=== PATIENT | female | born 1990 | race Caucasian/White ===

== ENCOUNTER → 2016-08-03 | Outpatient (CLI) | payer OTHER ==
--- NOTE | 2016-08-04 09:33 | US ---
EXAMINATION: Transabdominal obstetric ultrasound HISTORY: Light for gestational age COMPARISON: 05/02/2016 TECHNIQUE: Grayscale, color Doppler, and spectral Doppler images obtained transabdominally. FINDINGS: The placenta is posterior. Amniotic fluid index is normal. The biparietal diameter measure s 8.5 cm, head circumference measures 29.8 cm, the abdominal circumference measures 28.9 cm, and the femoral length measures 6.7 cm. This gives an estimated gestational age at 33 weeks and 4 days with an estimated date of delivery at 09/17/2016. Overall the fetus is within the 20th percentile. The es timated weight is 2187 g. The heart rate is 157 bpm. The fetus is in a cephalic position . IMPRESSION: Single live intrauterine .
== END ==
LOC: MW.US 14:42
PROVIDERS: ATTEND Advanced Practice Midwife
DX: O36.5930 Maternal care for other known or suspected poor fetal growth, third trimester, not applicable or unspecified (principal); Z3A.33 33 weeks gestation of pregnancy
CPT/HCPCS: 76815-26; 76816

== ENCOUNTER → 2016-08-12 | Outpatient (CLI) | payer OTHER, BC | LOC: MW.CHOBGYN 15:00 | PROVIDERS: ATTEND Advanced Practice Midwife | DX: Z34.90 Encounter for supervision of normal pregnancy, unspecified, unspecified trimester (principal) | CPT/HCPCS: 87081 ==

== ENCOUNTER 2016-09-09 22:40 | Inpatient (IN) | payer BC, OTHER ==
[2016-09-09] MEDS: Lactated Ringers 1,000 ML IV SCH (23:30)
[2016-09-09] MEDS ORDERED: Misoprostol 200 MCG Tab PO PRN (23:42)
[2016-09-09] MEDS ORDERED: Sodium Chloride 0.9% 2.5 ML Syringe FLUSH PRN (23:42)
[2016-09-09] MEDS ORDERED: Nalbuphine 10 MG/1 ML Vial IVPUSH PRN (23:42)
[2016-09-09] MEDS ORDERED: Misoprostol 25 MCG (1/4 of 100 MCG) Tab VAG PRN (23:42)
[2016-09-09] MEDS ORDERED: Sodium Chloride 0.9% 10 ML Syringe FLUSH PRN (23:42)
[2016-09-09] MEDS ORDERED: Butorphanol 1 MG/ML SDV IVPUSH PRN (23:42)
[2016-09-09] MEDS ORDERED: Lidocaine 1% 50 ML MDV INJECT PRN (23:42)
[2016-09-09] MEDS ORDERED: Methylergonovine 0.2 MG/1 ML Amp IM PRN (23:42)
[2016-09-09] MEDS ORDERED: Water For Irrigation,Sterile 1,000 ML Container IRR PRN (23:42)
[2016-09-09] MEDS ORDERED: Carboprost Tromethamine 250 MCG/1 ML Amp IM PRN (23:42)
[2016-09-09] MEDS ORDERED: Terbutaline 1 MG/ML SDV SUBCUT PRN (23:42)
[2016-09-09] MEDS ORDERED: Oxytocin/Lactated Ringers 30 UNIT/500 ML BAG IV SCH ×2 (23:45)
[2016-09-09] MEDS ORDERED: Misoprostol 25 MCG (1/4 of 100 MCG) Tab VAG SCH (23:45)
[2016-09-10] MEDS: Lactated Ringers 1,000 ML IV SCH (02:06)
[2016-09-10] MEDS ORDERED: Ropivacaine 0.2% 2 MG/ML 20 ML SDV ONE (02:37)
[2016-09-10] MEDS ORDERED: fentaNYL 100 MCG/2 ML SDV ONE (02:37)
--- NOTE | 2016-09-10 02:50 | PCM.PREANE ---
Preanesthetic Assessment - Anesthesia/Transfusion/Family Hx Anesthesia History: No Prior Anesthesia Family History of Anesthesia Reaction: No - Review of Systems General: No Symptoms Pulmonary: No Symptoms Cardiovascular: No Symptoms Gastrointestinal: No symptoms Neurological: No Symptoms Other: Reports: None - Physical Assessment Height: 1.5 m Weight: 133 kg ASA Class: 2 Mental Status: Alert & Oriented x3 Airway Class: Mallampati = 2 Dentition: Reports: Normal Dentition - Lab Values: Laboratory Last Values WBC 11.65 K/uL (4.0-11.0) H 09/09/16 23:57 RBC 4.16 M/uL (4.30-5.90) L 09/09/16 23:57 Hgb 12.5 g/dL (12.0-16.0) 09/09/16 23:57 Hct 37.2 % (36.0-46.0) 09/09/16 23:57 MCV 89.4 fL (80.0-98.0) 09/09/16 23:57 MCH 30.0 pg (27.0-32.0) 09/09/16 23:57 MCHC 33.6 g/dL (31.0-37.0) 09/09/16 23:57 RDW Std Deviation 48.9 fl (28.0-62.0) 09/09/16 23:57 RDW Coeff of Bo 15 % (11.0-15.0) 09/09/16 23:57 Plt Count 210 K/uL (150-400) 09/09/16 23:57 MPV 11.00 fL (7.40-12.00) 09/09/16 23:57 Nucleated RBC % 0.0 /100WBC 09/09/16 23:57 Nucleated RBCs # 0 K/uL 09/09/16 23:57 Membrane Rupture POSITIVE 09/09/16 23:10 Blood Type A POSITIVE 09/09/16 23:57 Antibody Screen NEGATIVE 09/09/16 23:57 - Allergies Allergies/Adverse Reactions: Allergies Allergy/AdvReac Type Severity Reaction Status Date / Time No Known Allergies Allergy Verified 09/09/16 23:07 - Anesthesia Plan Pre-Op Medication Ordered: None - Acknowledgements Anesthesia Type Planned: Epidural Pt an Appropriate Candidate for the Planned Anesthesia: Yes Alternatives and Risks of Anesthesia Discussed w Pt/Guardian: Yes Pt/Guardian Understands and Agrees with Anesthesia Plan: Yes PreAnesthesia Questionnaire Hematologic History: Reports: None (Denies any personal or family hx of bleeding or clotting problems.) - Past Surgical History Head Surgeries/Procedures: Reports: None HEENT Surgical History: Reports: None Cardiovascular Surgical History: Reports: None Respiratory Surgical History: Reports: None GI Surgical History: Reports: None Female Surgical History: Reports: None Male Surgical History: Reports: None Endocrine Surgical History: Reports: None Neurological Surgical History: Reports: None Musculoskeletal Surgical History: Reports: None Oncologic Surgical History: Reports: None Dermatological Surgical History: Reports: None - CURRENT (IN HOUSE) MEDS Current Meds: Current Medications Butorphanol Tartrate (Stadol) 1 mg IVPUSH Q1H PRN PRN Reason: Pain Carboprost Tromethamine (Hemabate Ds) 250 mcg IM ASDIRECTED PRN PRN Reason: Post Hemorrhage Lactated Ringer's (Ringers, Lactated) 1,000 mls @ 150 mls/hr IV ASDIRECTED QUANG Last Admin: 09/10/16 02:06 Dose: 999 mls/hr Oxytocin/Lactated Ringer's (Pitocin In Lr 30 Units/500 Ml) 30 unit in 500 mls @ 2 mls/hr IV TITRATE QUANG; 2 MUNITS/MIN PRN Reason: Protocol Lidocaine HCl (Xylocaine 1%) 50 ml INJECT .ONCE PRN PRN Reason: Laceration repair Methylergonovine Maleate (Methergine) 0.2 mg IM ASDIRECTED PRN PRN Reason: Post Hemorrhage Misoprostol (Cytotec) 200 mcg PO .ONCE PRN PRN Reason: Post Hemorrhage Sodium Chloride (Saline Flush) 10 ml FLUSH ASDIRECTED PRN PRN Reason: Keep Vein Open Sodium Chloride (Saline Flush) 2.5 ml FLUSH ASDIRECTED PRN PRN Reason: Keep Vein Open Sterile Water (Sterile Water For Irrigation) 1,000 ml IRR ASDIRECTED PRN PRN Reason: delivery Terbutaline Sulfate (Brethine) 0.25 mg SUBCUT ASDIRECTED PRN PRN Reason: Tacysystole Discontinued Medications Fentanyl (Sublimaze) Confirm Administered Dose 100 mcg .ROUTE .STK-MED ONE Stop: 09/10/16 02:38 Oxytocin/Lactated Ringer's (Pitocin In Lr 30 Units/500 Ml) 30 unit in 500 mls @ 999 mls/hr IV ASDIRECTED QUANG PRN Reason: 999 MUNITS/MIN Stop: 09/10/16 00:16 Ropivacaine/Fentanyl/NS (Fentanyl 2 Mcg-Ropiv 0.2%-Ns) Confirm Administered Dose 100 mls @ as directed .ROUTE .STK-MED ONE Stop: 09/10/16 02:38 Misoprostol (Cytotec) 25 mcg VAG .ONCE QUANG Misoprostol (Cytotec) 25 mcg VAG Q4H PRN PRN Reason: Cervical Ripening Stop: 09/11/16 03:43 Nalbuphine HCl (Nubain) 10 mg IVPUSH Q1H PRN PRN Reason: Pain (severe 7-10) Stop: 09/10/16 01:43 Ropivacaine (Naropin 0.2%) Confirm Administered Dose 20 ml .ROUTE .STK-MED ONE Stop: 09/10/16 02:38
[2016-09-10] MEDS ORDERED: Acetaminophen 500 MG Tab PO PRN (09:19)
[2016-09-10] MEDS ORDERED: Bisacodyl 10 MG Supp RECTAL PRN (09:19)
[2016-09-10] MEDS ORDERED: Lanolin 100% Cream 7 GM Tube TOP PRN (09:19)
[2016-09-10] MEDS ORDERED: oxyCODONE 5 MG Tab PO PRN (09:19)
[2016-09-10] MEDS ORDERED: Docusate Sodium 100 MG Cap PO PRN (09:19)
[2016-09-10] MEDS ORDERED: Benzocaine/Menthol 20%-0.5% Spray 78 GM Cannister TOP PRN (09:19)
[2016-09-10] MEDS ORDERED: Witch Hazel Medicated Pads 40/Jar TOP PRN (09:19)
[2016-09-10] MEDS: Ibuprofen 800 MG Tab PO PRN ×2 (09:52→16:20)
--- NOTE | 2016-09-10 10:41 | PCM48HPAN ---
Post Anesthesia Note - EVALUATION WITHIN 48HRS OF ANESTHETIC Vital Signs in Normal Range: Yes Patient Participated in Evaluation: Yes Respiratory Function Stable: Yes Airway Patent: Yes Cardiovascular Function Stable: Yes Hydration Status Stable: Yes Pain Control Satisfactory: Yes Nausea and Vomiting Control Satisfactory: Yes Mental Status Recovered: Yes - COMMENTS/OBSERVATIONS Free Text/Narrative:: Denies any complaints or concerns at this time.
--- NOTE | 2016-09-11 08:43 | PCM.PNPP ---
- General Info Date of Service: 09/11/16 Functional Status: Reports: pain controlled, tolerating diet, ambulating, urinating - Review of Systems General: Reports: No Symptoms HEENT: Reports: no symptoms Pulmonary: Reports: no symptoms Cardiovascular: Reports: No Symptoms Gastrointestinal: Reports: No symptoms, Fl[place] Genitourinary: Reports: no symptoms Musculoskeletal: Reports: no symptoms Skin: Reports: no symptoms Neurological: Reports: No Symptoms Psychiatric: Reports: no symptoms - General Info Date of Service: 09/11/16 - Patient Data Vital Signs - most recent: Last Vital Signs Temp 36.8 C 09/11/16 04:00 Pulse 77 09/11/16 04:00 Resp 12 09/11/16 04:00 BP 117/76 09/11/16 04:00 Pulse Ox 98 09/11/16 04:00 Weight - most recent: 133 kg Lab Results - last 24 hrs: Laboratory Results - last 24 hr 09/11/16 Range/Units 05:58 Hgb 10.7 L (12.0-16.0) g/dL Hct 32.1 L (36.0-46.0) % Med Orders - Current: Current Medications Acetaminophen (Tylenol Extra Strength) 500 mg PO Q4H PRN PRN Reason: Pain Benzocaine/Menthol (Dermoplast Pain Relief 20%-0.5% [place]) 78 gm TOP ASDIRECTED PRN PRN Reason: Perineal Comfort Measure Last Admin: 09/10/16 09:53 Dose: 78 gm Bisacodyl (Dulcolax) 10 mg RECTAL .ONCE PRN PRN Reason: Constipation Butorphanol Tartrate (Stadol) 1 mg IVPUSH Q1H PRN PRN Reason: Pain Carboprost Tromethamine (Hemabate Ds) 250 mcg IM ASDIRECTED PRN PRN Reason: Post Hemorrhage Docusate Sodium (Colace) 100 mg PO BID PRN PRN Reason: Constipation Emollient Ointment (Lansinoh Hpa) 0 gm TOP ASDIRECTED PRN PRN Reason: Sore Nipples Lactated Ringer's (Ringers, Lactated) 1,000 mls @ 150 mls/hr IV ASDIRECTED QUANG Last Admin: 09/10/16 02:06 Dose: 999 mls/hr Oxytocin/Lactated Ringer's (Pitocin In Lr 30 Units/500 Ml) 30 unit in 500 mls @ 2 mls/hr IV TITRATE QUANG; 2 MUNITS/MIN PRN Reason: Protocol Ibuprofen (Motrin) 800 mg PO Q6H PRN PRN Reason: Pain Last Admin: 09/10/16 16:20 Dose: 800 mg Lidocaine HCl (Xylocaine 1%) 50 ml INJECT .ONCE PRN PRN Reason: Laceration repair Methylergonovine Maleate (Methergine) 0.2 mg IM ASDIRECTED PRN PRN Reason: Post Hemorrhage Misoprostol (Cytotec) 200 mcg PO .ONCE PRN PRN Reason: Post Hemorrhage Oxycodone HCl (Oxycodone) 5 mg PO Q2H PRN PRN Reason: Pain Sodium Chloride (Saline Flush) 10 ml FLUSH ASDIRECTED PRN PRN Reason: Keep Vein Open Sodium Chloride (Saline Flush) 2.5 ml FLUSH ASDIRECTED PRN PRN Reason: Keep Vein Open Sterile Water (Sterile Water For Irrigation) 1,000 ml IRR ASDIRECTED PRN PRN Reason: delivery Last Admin: 09/10/16 07:00 Dose: 1,000 ml Terbutaline Sulfate (Brethine) 0.25 mg SUBCUT ASDIRECTED PRN PRN Reason: Tacysystole [place] (Tucks) 1 pad TOP ASDIRECTED PRN PRN Reason: comfort care Last Admin: 09/10/16 09:52 Dose: 1 pad Discontinued Medications Fentanyl (Sublimaze) Confirm Administered Dose 100 mcg .ROUTE .STK-MED ONE Stop: 09/10/16 02:38 Oxytocin/Lactated Ringer's (Pitocin In Lr 30 Units/500 Ml) 30 unit in 500 mls @ 999 mls/hr IV ASDIRECTED QUANG PRN Reason: 999 MUNITS/MIN Stop: 09/10/16 00:16 Last Admin: 09/10/16 06:58 Dose: 999 munits/min, 999 mls/hr Ropivacaine/Fentanyl/NS (Fentanyl 2 Mcg-Ropiv 0.2%-Ns) Confirm Administered Dose 100 mls @ as directed .ROUTE .STK-MED ONE Stop: 09/10/16 02:38 Misoprostol (Cytotec) 25 mcg VAG .ONCE QUANG Misoprostol (Cytotec) 25 mcg VAG Q4H PRN PRN Reason: Cervical Ripening Stop: 09/11/16 03:43 Nalbuphine HCl (Nubain) 10 mg IVPUSH Q1H PRN PRN Reason: Pain (severe 7-10) Stop: 09/10/16 01:43 Ropivacaine (Naropin 0.2%) Confirm Administered Dose 20 ml .ROUTE .STK-MED ONE Stop: 09/10/16 02:38 - Interaction Infant Disposition, : [place] in Room with Family Interaction: Holding Infant Infant Feeding: Attempted ; Nursed Fair/Poor Support Person: Significant Other - Recovery Exam Fundal Tone: Firm Fundal Level: At Umbilicus Fundal Placement: Midline Lochia Amount: Scant Lochia Color: Rubra/Red Perineum Description: Intact, Minimal Bruising/Swelling Other Perinuem Description: 1st degree laceration Episiotomy/Laceration: Approximated Bladder Status: Voiding Urinary Elimination: Voided - Exam General: alert, oriented Neck: supple Lungs: Clear to auscultation, Normal respiratory effort Cardiovascular: Regular Rate, Regular Rhythm Abdomen: bowel sounds present, soft Extremities: no calf tenderness Skin: warm, dry, intact Neurological: no new focal deficit Psy/Mental Status: alert, normal affect, normal mood - Problem List & Annotations (1) Vaginal delivery SNOMED Code(s): 247737441 Code(s): O80 - ENCOUNTER FOR FULL-TERM UNCOMPLICATED DELIVERY Status: Acute Current Visit: Yes - Problem List Review Problem List Initiated/Reviewed/Updated: Yes - My Orders Last 24 Hours: My Active Orders 09/10/16 09:19 Patient Status [ADT] Routine Up ad Nikki [RC] ASDIRECTED Acetaminophen [Tylenol Extra Strength] 500 mg PO Q4H PRN Benzocaine/Menthol [Dermoplast Pain Relief 20%-0.5% [place]] 78 gm TOP ASDIRECTED PRN Bisacodyl [Dulcolax] 10 mg RECTAL .ONCE PRN Docusate Sodium [Colace] 100 mg PO BID PRN Ibuprofen [Motrin] 800 mg PO Q6H PRN Lanolin [Lansinoh HPA] See Dose Instructions TOP ASDIRECTED PRN [place] [Tucks] 1 pad TOP ASDIRECTED PRN oxyCODONE 5 mg PO Q2H PRN Assess Lochia [WOMSER] Per Unit Routine Assess Uterine Involution [WOMSER] Per Unit Routine Peripheral IV Discontinue [OM.PC] Routine 09/10/16 09:20 Ice Therapy [OM.PC] Per Unit Routine Perineal Care [OM.PC] Per Unit Routine Sitz Bath [OM.PC] Per Unit Routine 09/11/16 10:00 Ready for Discharge [RC] PER UNIT ROUTINE - Assessment Assessment:: PPD#1 S/p SAVD Doing well Desires discharge home today - Plan Plan:: Discharge home today Pelvic rest for 6wks Call for increased heavy bleeding of > 1pad per hr Call for temp. >100.4 x 2 Thromboembolic precautions given blues/depression precautions given
[2016-09-11 09:18] VITALS: BP 117/68
--- NOTE | 2016-09-12 06:08 | OR ---
SURGEON: Eleni Sagastume DATE OF PROCEDURE: 09/10/2016 PREDELIVERY HISTORY: This is a 26-year-old, G2, P1, presented to Labor and Delivery at 39 weeks 5 days with complaints of leakage of fluid. The patient was noted to be grossly ruptured. The patient was having irregular painful contractions at the at presentation. heart tracing was noted to be significant for category 1 tracing on admission. Amniotic fluid was noted to be clear. The patient eventually did receive her epidural after contractions were closer together. The patient eventually went on to complete dilation and +3 station under maternal expulsive efforts. PREOPERATIVE DIAGNOSES: 1. Intrauterine at 39 weeks and 5 days. 2. GBS negative. 3. Spontaneous rupture of membranes. 4. Active labor. POSTOPERATIVE DIAGNOSES: 1. Intrauterine at 39 weeks and 5 days. 2. Delivered status. 3. First-degree vaginal laceration. PROCEDURE PERFORMED: 1. Spontaneous assisted vaginal delivery. 2. Repair of first-degree vaginal laceration. ANESTHESIA TYPE: Epidural. ESTIMATED BLOOD LOSS: 150 mL. FINDINGS: Viable female infant in vertex presentation with score of 7 and 9 at 1 and 5 minutes respectively and weight of 6 pounds, 8 ounces. Normal intact placenta with 3-vessel cord. First-degree vaginal laceration. SPECIMEN REMOVED: Placenta. CONDITION: Postoperatively, the patient and tolerated the procedure well. COMPLICATIONS: None known. DESCRIPTION OF PROCEDURE: This female under epidural anesthesia delivered a viable female infant, with score of 7 and 9 at 1 and 5 minutes respectively and weight of 6 pounds, 8 ounces. Delivery was via spontaneous assisted vaginal delivery with in vertex presentation. Upon delivery of infant vertex, the neck was checked. Nuchal was not reduced and delivered through and the was bulb suctioned at delivery. After delivery of infant, the cord was doubly clamped, cut, and was taken directly over to the warmer second to attenuated tone, but by that time was placed in the warmer, did have a good cry and started developing tone. After delivery of , IV Pitocin was given in bolus fashion to prevent excessive maternal blood loss and to help expel the placenta. With signs of placental separation, a fundal massage was completed along with traction on the umbilical cord. A normal intact placenta with 3-vessel cord was delivered. After delivery of infant and placenta, the vagina, perineum, and rectum were explored and patient had a midline small first-degree vaginal laceration that was repaired with 3-0 Vicryl suture in a [id number] fashion. Afterwards, the lower uterine segment and vagina was cleared of all clots and debris. The patient was cleansed, pads were changed and the bed was returned to functioning status. The patient and tolerated the procedure well. Sponge, lap, needle, and instrument counts were correct. ALONZO / HOME /[id number]
== END 2016-09-11 10:35 | disposition home or self-care (01) | DRG 775 ==
LOC: MW.OBCHECK 22:40 → MW.OB 22:42 → MW.OBCHECK 23:43 → OBSVTOIN 09-10 06:41 → MW.OB 09-10 11:00
PROVIDERS: ADMIT Obstetrics & Gynecology; ATTEND Obstetrics & Gynecology
PROC: 10E0XZZ Delivery of Products of Conception, External Approach (ICD-10-PCS; principal; 2016-09-10)
PROC: 0HQ9XZZ Repair Perineum Skin, External Approach (ICD-10-PCS; 2016-09-10)
DX: O42.02 Full-term premature rupture of membranes, onset of labor within 24 hours of rupture (principal); O70.0 First degree perineal laceration during delivery; Z3A.39 39 weeks gestation of pregnancy; Z37.0 Single live birth
CPT/HCPCS: 01967; 36415; 59025; 84112; 85014; 85018; 85027; 86850; 86900; 86901; A9270-GY; J2795; J3010; J7120

== ENCOUNTER 2016-10-19 19:08 | Emergency (ER) | payer BC, OTHER ==
[2016-10-19] MEDS ORDERED: Albuterol/Ipratropium 3.0-0.5 MG/3 ML Neb Soln NEB ONE ×2 (19:12→20:03)
--- NOTE | 2016-10-19 19:13 | EDM.PDOC ---
ED HPI GENERAL MEDICAL PROBLEM - General Chief Complaint: Cardiovascular Problem Stated Complaint: PT HAS DIFFICULTY BREATHING Time Seen by Provider: 10/19/16 19:12 Source of Information: Reports: Patient History Limitations: Reports: No Limitations - History of Present Illness INITIAL COMMENTS - FREE TEXT/NARRATIVE: HISTORY AND PHYSICAL: []26-year-old female presenting with shortness of breath chest tightness History of Present Illness: []Patient is 4 weeks and points to her left chest as were the tightness is She does have history of asthma and states when she is around dust, that usually triggers her asthma/she has not been dusting recently 4 week old Baby and child are with her Review of Systems: As per history of present illness and below otherwise all systems reviewed and negative. Past medical history: As per history of present illness and as reviewed below otherwise noncontributory. Surgical history: As per history of present illness and as reviewed below otherwise noncontributory. Social history: No reported history of drug or alcohol abuse. Family history: As per history of present illness and as reviewed below otherwise noncontributory. Physical exam: Alert and oriented female who looks frightened HEENT: Atraumatic, normocehpalic, pupils reactive, negative for conjunctival pallor or scleral icterus, mucous membranes moist, throat clear, neck supple, nontender, trachea midline. Lungs: Clear to auscultation, breath sounds equal bilaterally diminished, chest non tender. Heart: S1S2, regular, negative for clicks, rubs, or JVD. Abdomen: Soft, nondistended, nontender. Negative for masses or hepatossplenmegaly. Negative for costovertebral tenderness. Pelvis: Stable nontender. Genitourinary: Deferred. Rectal: Deferred Extremities: Atraumatic, negative for cords or calf pain. Neurovascular unremarkable. Neuro: Awake, alert, oriented. Cranial nerves II through XII unremarkable. Cerebellum unremarkable. Motor and sensory unremarkable throughout. Exam nonfocal. Discussed with patient that her d-dimer is negative and is unlikely then to have a blood clot in her lung/ however should symptoms worsen again and sharp pain occur she needs to return immediately for reevaluation. Diagnostics: [CXR CBC, CMP, D-dimer] Therapeutics: [DuoNeb 2] Impression: [Asthma exacerbation] Plan: [Home i worsening of symptoms and she will need to be reevaluated immediately ] Definitive disposition and diagnosis as appropriate pending reevaluation and review of above. Onset: Today, Sudden Duration: Hour(s): Anterior Chest Pain Score (Numeric/FACES): 6 - Related Data Allergies Allergy/AdvReac Type Severity Reaction Status Date / Time No Known Allergies Allergy Verified 10/19/16 19:11 Home Meds: Home Meds Albuterol [IJD: Ventolin HFA] 10/19/16 [History] Control 10/19/16 [History] Past Medical History Hematologic History: Reports: None (Denies any personal or family hx of bleeding or clotting problems.) - Past Surgical History Head Surgeries/Procedures: Reports: None HEENT Surgical History: Reports: None Cardiovascular Surgical History: Reports: None Respiratory Surgical History: Reports: None GI Surgical History: Reports: None Female Surgical History: Reports: None Male Surgical History: Reports: None Endocrine Surgical History: Reports: None Neurological Surgical History: Reports: None Musculoskeletal Surgical History: Reports: None Oncologic Surgical History: Reports: None Dermatological Surgical History: Reports: None Social & Family History - Family History Family Medical History: Noncontributory - Tobacco Use Smoking Status *Q: Never Smoker Second Hand Smoke Exposure: No - Caffeine Use Caffeine Use: Reports: Soda - Recreational Drug Use Recreational Drug Use: No ED ROS GENERAL - Review of Systems Review Of Systems: ROS reveals no pertinent complaints other than HPI. ED EXAM, GENERAL - Physical Exam Exam: See Below (See dictation) Course - Vital Signs Last Recorded V/S: Last Vital Signs Temp 37.2 C 10/19/16 19:12 Pulse 115 H 10/19/16 20:15 Resp 19 10/19/16 20:15 BP 114/68 10/19/16 20:15 Pulse Ox 96 10/19/16 20:15 - Orders/Labs/Meds Orders: Active Orders 24 hr Category Date Time Status EKG 12 Lead [EKG Documentation Completion] [RC] STAT Care 10/19/16 19:26 Active RT Aerosol Therapy [RC] ASDIRECTED Care 10/19/16 19:12 Active RT Aerosol Therapy [RC] ASDIRECTED Care 10/19/16 20:03 Active CTA Chest W WO Contrast [Ang Chest] [CT] Stat Exams 10/19/16 20:53 Ordered Chest 2V [CR] Stat Exams 10/19/16 19:15 Taken COMPREHENSIVE METABOLIC PN,CMP [CHEM] Stat Lab 10/19/16 20:34 Received Labs: Laboratory Tests 10/19/16 10/19/16 Range/Units 20:34 20:34 WBC 9.75 (4.0-11.0) K/uL RBC 4.71 (4.30-5.90) M/uL Hgb 13.9 (12.0-16.0) g/dL Hct 42.2 (36.0-46.0) % MCV 89.6 (80.0-98.0) fL MCH 29.5 (27.0-32.0) pg MCHC 32.9 (31.0-37.0) g/dL RDW Std Deviation 42.7 (28.0-62.0) fl RDW Coeff of Bo 13 (11.0-15.0) % Plt Count 229 (150-400) K/uL MPV 9.60 (7.40-12.00) fL Neut % (Auto) 70.8 (48.0-80.0) % Lymph % (Auto) 23.9 (16.0-40.0) % [place] % (Auto) 4.7 (0.0-15.0) % Eos % (Auto) 0.5 (0.0-7.0) % Baso % (Auto) 0.1 (0.0-1.5) % Neut # (Auto) 6.9 H (1.4-5.7) K/uL Lymph # (Auto) 2.3 (0.6-2.4) K/uL [place] # (Auto) 0.5 (0.0-0.8) K/uL Eos # (Auto) 0.1 (0.0-0.7) K/uL Baso # (Auto) 0.0 (0.0-0.1) K/uL Nucleated RBC % 0.0 /100WBC Nucleated RBCs # 0 K/uL D-Dimer, Quantitative 0.39 (0.0-0.52) mg/LFEU Meds: Medications Discontinued Medications Generic Name Dose Route Start Last Admin Trade Name Freq PRN Reason Stop Dose Admin Albuterol/Ipratropium 3 ml 10/19/16 19:12 10/19/16 19:25 Duoneb 3.0-0.5 Mg/3 Ml NEB 10/19/16 19:13 3 ml ONETIME ONE Administration Albuterol/Ipratropium 3 ml 10/19/16 20:03 10/19/16 20:09 Duoneb 3.0-0.5 Mg/3 Ml NEB 10/19/16 20:04 3 ml ONETIME ONE Administration Prednisolone 30 mg 10/19/16 20:03 10/19/16 20:12 Orapred 15 Mg/5ml Soln PO 10/19/16 20:04 30 mg ONETIME ONE Administration Departure - Departure Time of Disposition: 21:02 Disposition: Home, Self-Care 01 Condition: Good Clinical Impression: Asthma Qualifiers: Asthma severity: unspecified severity Asthma complication type: uncomplicated Qualified Code(s): J45.909 - Unspecified asthma, uncomplicated Forms: ED Department Discharge Additional Instructions: The following information is given to patients seen in the emergency department who are being discharged to home. This information is to outline your options for follow-up care. We provide all patients seen in our emergency department with a follow-up referral. The need for follow-up, as well as the timing and circumstances, are variable depending upon the specifics of your emergency department visit. If you don't have a primary care physician on staff, we will provide you with a referral. We always advise you to contact your personal physician following an emergency department visit to inform them of the circumstance of the visit and for follow-up with them and/or the need for any referrals to a consulting specialist. The emergency department will also refer you to a specialist when appropriate. This referral assures that you have the opportunity for followup care with a specialist. All of these measure are taken in an effort to provide you with optimal care, which includes your followup. Under all circumstances we always encourage you to contact your private physician who remains a resource for coordinating your care. When calling for followup care, please make the office aware that this follow-up is from your recent emergency room visit. If for any reason you are refused follow-up, please contact the [facility] emergency department at and asked to speak to the emergency department charge nurse. Follow-up with your primary care provider next week Any symptoms of chest pain and again shortness of breath will need to return for further evaluation - My Orders Last 24 Hours: My Active Orders 10/19/16 19:12 RT Aerosol Therapy [RC] ASDIRECTED 10/19/16 19:15 Chest 2V [CR] Stat 10/19/16 19:26 EKG 12 Lead [EKG Documentation Completion] [RC] STAT 10/19/16 20:03 RT Aerosol Therapy [RC] ASDIRECTED 10/19/16 20:34 COMPREHENSIVE METABOLIC PN,CMP [CHEM] Stat 10/19/16 20:53 CTA Chest W WO Contrast [Ang Chest] [CT] Stat - Assessment/Plan Last 24 Hours: My Active Orders 10/19/16 19:12 RT Aerosol Therapy [RC] ASDIRECTED 10/19/16 19:15 Chest 2V [CR] Stat 10/19/16 19:26 EKG 12 Lead [EKG Documentation Completion] [RC] STAT 10/19/16 20:03 RT Aerosol Therapy [RC] ASDIRECTED 10/19/16 20:34 COMPREHENSIVE METABOLIC PN,CMP [CHEM] Stat 10/19/16 20:53 CTA Chest W WO Contrast [Ang Chest] [CT] Stat
[2016-10-19] MEDS ORDERED: prednisoLONE Soln 15 MG/5 ML UD Cup PO ONE (20:03)
[2016-10-19 21:02] LABS: CHLORIDE,CL 109 mmol/L (98-110); SODIUM,NA 143 mmol/L (136-146)
[2016-10-19 21:20] VITALS: BP 110/67
--- NOTE | 2016-10-20 09:50 | CR ---
EXAM DATE: 10/19/16 PATIENT'S AGE: 26 Patient: DEBBIE NEWSOME Facility: [place], [place] Site . Site : 1990 Study: XRay Chest [id number]/28/2017 7:54:43 PM Ordering Physician: Doctor Byrd Final Report: INDICATION: SOB, chest tightness TECHNIQUE: Chest 2 views. COMPARISON: None. FINDINGS: Cardiovascular and mediastinum: Heart size and vasculature are normal in caliber and appearance. Mediastinum is within normal limits. Lungs and pleural spaces: Lungs are clear. No sign of infiltrate or mass. No sign of pleural effusion. No pneumothorax. Bones and soft tissues: No significant findings. IMPRESSION: Unremarkable chest. Dictated by: Mark Gosnales MD @ 10/19/2016 20:03:49 (Electronic Signature) Report Signed by Proxy. [facility] HOSPITALZuleyma
== END 2016-10-19 21:20 | disposition home or self-care (01) ==
LOC: MW.ED 19:08
DX: O99.53 Diseases of the respiratory system complicating the puerperium (principal); J45.909 Unspecified asthma, uncomplicated
CPT/HCPCS: 71020; 80053; 85025; 85379; 93005; 94640; 94664; 99285; A9270; 99283

== ENCOUNTER 2016-10-22 15:04 | Emergency (ER) | payer BC, OTHER ==
--- NOTE | 2016-10-22 15:28 | EDM.PDOC ---
ED HPI GENERAL MEDICAL PROBLEM - General Chief Complaint: Respiratory Problem Stated Complaint: INHALER NOT WORKING Time Seen by Provider: 10/22/16 15:08 - History of Present Illness INITIAL COMMENTS - FREE TEXT/NARRATIVE: HISTORY AND PHYSICAL: History of present illness: Patient 26-year-old white female with history of asthma presents with a concern of mild shortness of breath patient was seen in the emergency department recently she is given a dose of oral steroids and was given albuterol metered- dose inhaler every 4 hours but states at times it just feels that she can get a really deep breath but no wheezing she denies any chest pain nausea vomiting fever chills or other concern she seems to have a significant degree of anxiety related to not having been able identify what may have triggered this most recent attack. On arrival her pulse oximetries 100%. Review of systems: As per history of present illness and below otherwise all systems reviewed and negative. Past medical history: As per history of present illness and as reviewed below otherwise noncontributory. Surgical history: As per history of present illness and as reviewed below otherwise noncontributory. Social history: No reported history of drug or alcohol abuse. Family history: As per history of present illness and as reviewed below otherwise noncontributory. Physical exam: HEENT: Atraumatic, normocephalic, pupils reactive, negative for conjunctival pallor or scleral icterus, mucous membranes moist, throat clear, neck supple, nontender, trachea midline. Lungs: Clear to auscultation, breath sounds equal bilaterally, chest nontender. Heart: S1S2, regular, negative for clicks, rubs, or JVD. Abdomen: Soft, nondistended, nontender. Negative for masses or hepatosplenomegaly. Negative for costovertebral tenderness. Pelvis: Stable nontender. Genitourinary: Deferred. Rectal: Deferred. Extremities: Atraumatic, negative for cords or calf pain. Neurovascular unremarkable. Neuro: Awake, alert, oriented. Cranial nerves II through XII unremarkable. Cerebellum unremarkable. Motor and sensory unremarkable throughout. Exam nonfocal. Diagnostics: Deferred Therapeutics: None Impression: #1 medical screening exam #2 history of asthma Definitive disposition and diagnosis as appropriate pending reevaluation and review of above. - Related Data Allergies Allergy/AdvReac Type Severity Reaction Status Date / Time No Known Allergies Allergy Verified 07/01/17 15:16 Home Meds: Home Meds Albuterol Sulfate [Proair Hfa] 2 puff INH Q4HR PRN 10/22/16 [History] Past Medical History Respiratory History: Reports: Asthma Psychiatric History: Reports: None Hematologic History: Reports: None (Denies any personal or family hx of bleeding or clotting problems.) - Infectious Disease History Infectious Disease History: Reports: Chicken Pox - Past Surgical History Head Surgeries/Procedures: Reports: None HEENT Surgical History: Reports: None Cardiovascular Surgical History: Reports: None Respiratory Surgical History: Reports: None GI Surgical History: Reports: None Female Surgical History: Reports: None Male Surgical History: Reports: None Endocrine Surgical History: Reports: None Neurological Surgical History: Reports: None Musculoskeletal Surgical History: Reports: None Oncologic Surgical History: Reports: None Dermatological Surgical History: Reports: None Social & Family History - Family History Family Medical History: Noncontributory - Tobacco Use Smoking Status *Q: Never Smoker Second Hand Smoke Exposure: No - Caffeine Use Caffeine Use: Reports: Soda - Recreational Drug Use Recreational Drug Use: No ED ROS GENERAL - Review of Systems Review Of Systems: ROS reveals no pertinent complaints other than HPI. ED EXAM, GENERAL - Physical Exam Exam: See Below (See dictation) Course - Vital Signs Last Recorded V/S: Last Vital Signs Temp 36.6 C 10/22/16 15:12 Pulse 102 H 10/22/16 15:12 Resp 19 10/22/16 15:12 BP 135/74 10/22/16 15:12 Pulse Ox 97 10/22/16 15:12 Departure - Departure Time of Disposition: 15:25 Disposition: Home, Self-Care 01 Condition: Good Clinical Impression: History of asthma, Encounter for medical screening examination - Discharge Information Forms: ED Department Discharge Additional Instructions: The following information is given to patients seen in the emergency department who are being discharged to home. This information is to outline your options for follow-up care. We provide all patients seen in our emergency department with a follow-up referral. The need for follow-up, as well as the timing and circumstances, are variable depending upon the specifics of your emergency department visit. If you don't have a primary care physician on staff, we will provide you with a referral. We always advise you to contact your personal physician following an emergency department visit to inform them of the circumstance of the visit and for follow-up with them and/or the need for any referrals to a consulting specialist. The emergency department will also refer you to a specialist when appropriate. This referral assures that you have the opportunity for followup care with a specialist. All of these measure are taken in an effort to provide you with optimal care, which includes your followup. Under all circumstances we always encourage you to contact your private physician who remains a resource for coordinating your care. When calling for followup care, please make the office aware that this follow-up is from your recent emergency room visit. If for any reason you are refused follow-up, please contact the [facility] emergency department at and asked to speak to the emergency department charge nurse. [facility] [address] [place] [phone] Continue current medications follow-up primary medical doctor/clinic above return as needed as discussed
== END 2016-10-22 15:44 | disposition home or self-care (01) ==
LOC: MW.ED 15:04
CPT/HCPCS: 99282; 99284